=== PATIENT | female | born 1985 | race Caucasian/White ===

== ENCOUNTER 2017-08-21 06:33 | Emergency (ER) | payer BC, OTHER ==
[~2017-08-21] VITALS: Ht 177.8 cm; Wt 115.7 kg
[2017-08-21] MEDS ORDERED: IV NORMAL SALINE 1000ML BAG 1,000 ML IV SCH (06:45)
--- NOTE | 2017-08-21 06:49 | PHYS DOC ---
Past Medical History Past Medical History: Migraines Additional Past Medical Histor: Left kidney UPJ obstruction; ADHD Additional Past Surgical Histo: Cystoscopy x 3; nephrostomy tube x 2; left ureteral stent 08/20 Additional Information: Non smoker Adult General Chief Complaint Chief Complaint: FLANK PAIN HPI HPI Patient is a 31 year old female who presents with left flank pain. She recently had surgery at [facility] with the ureteral stent placed on the left last week. She is due to have surgery again on September 01 at for the left UPJ obstruction. She states she's been doing pretty well and then last night at midnight developed pain on left side. This morning at 4:00 in the morning she had markedly increased pain and vomiting. She states "I couldn't make it to so I decided to come here". She is on Bactrim presently as she has cultured Escherichia coli and MRSA. No fever she is aware of. She states that she's had 6 surgeries left kidney in the past month all done at [facility]. Review of Systems Review of Systems Constitutional: Denies fever or chills Eyes: Denies change in visual acuity, redness, or eye pain HENT: Denies nasal congestion; POS sore throat after surgery Respiratory: Denies cough or shortness of breath Cardiovascular: No chest pain GI: Denies abdominal pain, POS nausea & vomiting, DENIES bloody stools or diarrhea : Denies dysuria or hematuria; POS left flank pain Musculoskeletal: POS back pain; NO joint pain Integument: Denies rash or skin lesions Neurologic: Denies headache, focal weakness or sensory changes All other systems were reviewed and found to be within normal limits, except as documented in this note. Current Medications Current Medications Current Medications Medications (Trade) Dose Ordered Sig/Viktor Start Time Stop Time Status Last Admin Dose Admin Hydromorphone HCl (Dilaudid) 0.5 mg PRN Q15MIN PRN 08/21/17 07:00 08/22/17 06:59 08/21/17 06:53 0.5 MG Ondansetron HCl (Zofran) 4 mg 1X ONCE 08/21/17 07:00 08/21/17 07:01 08/21/17 06:52 4 MG Sodium Chloride 1,000 ml @ 1,000 mls/hr Q1H 08/21/17 06:45 08/21/17 07:44 08/21/17 06:45 1,000 MLS/HR Allergies Allergies Allergies Coded Allergies Type Severity Reaction Last Updated Verified acetaminophen Allergy Severe 08/21/17 Yes cinnamon Allergy Severe 08/21/17 Yes Physical Exam Physical Exam Constitutional: Well developed, well nourished, no acute distress, non-toxic appearance. Patient in pain and drove herself here. HENT: Normocephalic, atraumatic, bilateral external ears normal, oropharynx moist, no oral exudates, nose normal. Eyes: PERRLA, EOMI, conjunctiva normal, no discharge. Neck: Normal range of motion, no tenderness, supple, no stridor. Cardiovascular:Heart rate regular rhythm, no murmur Lungs & Thorax: Bilateral breath sounds clear to auscultation Abdomen: Bowel sounds normal, soft, no tenderness, no masses, no pulsatile masses. Skin: Warm, dry, no erythema, no rash. Multiple tattoos. Back: No tenderness, no CVA tenderness. Extremities: No tenderness, no cyanosis, no clubbing, ROM intact, no edema. Neurologic: Alert and oriented X 3, normal motor function, normal sensory function, no focal deficits noted. Psychologic: Affect normal, judgement normal, mood normal. Current Patient Data Vital Signs Vital Signs Date Time Temp Pulse Resp B/P (MAP) Pulse Ox O2 Delivery O2 Flow Rate FiO2 08/21/17 06:53 14 96 Lab Values Laboratory Tests Test 08/21/17 06:38 POC Urine HCG, Qualitative Hcg negative (Negative) Course & Med Decision Making Course & Med Decision Making Evaluated patient upon arrival. IV NS, IV Dilaudid and Zofran. KUB to check stent placement. Care of patient turned over at shift change to Dr Floyd. Emir Disclaimer Emir Disclaimer This electronic medical record was generated, in whole or in part, using a voice recognition dictation system. Departure Departure Impression: Primary Impression: Left flank pain Additional Impressions: Nausea and vomiting Pain due to ureteral stent Problem Qualifiers Additional Impressions: Nausea and vomiting Vomiting type: unspecified Vomiting Intractability: unspecified Qualified Codes: R11.2 - Nausea with vomiting, unspecified Pain due to ureteral stent Encounter type: initial encounter Qualified Codes: T83.84XA - Pain due to genitourinary prosthetic devices, implants and grafts, initial encounter STEFAN CHAVIS MD Aug 21, 2017 06:49
[2017-08-21 06:50] LABS: BASO # 0.1 x10^3/uL (0.0-0.2); BASO % 1 % (0-3); EOS % 8 % (0-3); HEMATOCRIT 42.1 % (36.0-47.0); HEMOGLOBIN 14.1 g/dL (12.0-15.5); LYMPH # 1.9 x10^3/uL (1.0-4.8); LYMPH % 26 % (24-48); MEAN CORPUSCULAR HEMOGLOBIN 32 pg (25-35); MEAN CORPUSCULAR HGB CONC 34 g/dL (31-37); MEAN CORPUSCULAR VOLUME 95 fL (79-100); MONO % 7 % (0-9); NEUT % 59 % (31-73); PLATELET COUNT 317 x10^3/uL (140-400); RED BLOOD COUNT 4.41 x10^6/uL (3.50-5.40); RED CELL DISTRIBUTION WIDTH 12.8 % (11.5-14.5); WHITE BLOOD COUNT 7.6 x10^3/uL (4.0-11.0)
[2017-08-21] MEDS: HYDROmorphone 2 MG/ML VIAL IV/SQ PRN ×4 (06:53→09:54)
[2017-08-21] MEDS ORDERED: ONDANSETRON PF 4 MG/2 ML VIAL. IV ONE ×2 (07:00→09:45)
[2017-08-21 07:01] LABS: CALCIUM 9.9 mg/dL (8.5-10.1); CREATININE 0.8 mg/dL (0.6-1.0); GFR 82.6; POTASSIUM 3.9 mmol/L (3.5-5.1)
[2017-08-21 07:07] LABS: ALBUMIN 3.3 g/dL (3.4-5.0); ALBUMIN/GLOBULIN RATIO 0.8 (1.0-1.7); TOTAL BILIRUBIN 0.2 mg/dL (0.2-1.0); TOTAL PROTEIN 7.2 g/dL (6.4-8.2)
[2017-08-21 07:09] LABS: BILIRUBIN,URINE NEGATIVE (NEG); GLUCOSE,URINE NEGATIVE (NEG); NITRITE,URINE NEGATIVE (NEG); PH,URINE 7.5; PROTEIN,URINE NEGATIVE (NEG-TRACE)
[2017-08-21 07:15] LABS: BACTERIA,URINE FEW /HPF (0-FEW); SQUAMOUS EPITHELIAL CELL,UR MANY /LPF; WBC,URINE OCC /HPF (0-4)
--- NOTE | 2017-08-21 07:28 | RAD ---
KUB Indication: Pain on the left side status post left ureteral stent placement one week ago Technique: Portable supine AP view of the lower abdomen and pelvis Comparison: None Findings: Note made of left-sided ureteral stent. 5 mm calcific density seen projecting over the lower pole of the left kidney likely renal stone. Moderate colonic stool burden. Visualized osseous structures are within normal limits. Impression: Left lower pole renal stone (5 mm). Correlate with outside imaging if available.
[2017-08-21] MEDS ORDERED: MORPHINE SULFATE 4 MG/ML DISP.SYRIN. IV/SQ PRN (08:00)
--- NOTE | 2017-08-21 08:28 | RAD ---
Ultrasound kidneys Indication: Left flank pain. Technique: Grayscale, color Doppler and spectral waveform ultrasound images of the kidneys obtained. Comparison: None Findings: Exam somewhat limited due to overlying bowel gas. The right kidney measures 12.0 x 6.0 x 5.0 cm without evidence of hydronephrosis. The left kidney measures 13.2 x 6.3 x 6.6 cm with dilated renal pelvis. The distal aspect of the left ureteral stent is seen in the bladder. Impression: Moderate left hydronephrosis.
[2017-08-21 10:50] VITALS: BP 149/87
== END 2017-08-21 10:58 | disposition home or self-care (01) ==
LOC: ER 06:33
DX: R11.2 Nausea with vomiting, unspecified (principal); T83.84XA Pain due to genitourinary prosthetic devices, implants and grafts, initial encounter; G43.909 Migraine, unspecified, not intractable, without status migrainosus; F90.9 Attention-deficit hyperactivity disorder, unspecified type; Z93.6 Other artificial openings of urinary tract status; Z96.0 Presence of urogenital implants; Z88.6 Allergy status to analgesic agent; Z91.018 Allergy to other foods; Y65.8 Other specified misadventures during surgical and medical care; Y92.89 Other specified places as the place of occurrence of the external cause
CPT/HCPCS: 36415; 74000; 76770; 80053; 81001; 81025; 85025; 87086; 96361; 96374; 96375; 96376; 99285; J1170; J2405; J7030

== ENCOUNTER 2017-08-22 23:10 | Emergency (ER) | payer BC, OTHER ==
[~2017-08-22] VITALS: Ht 177.8 cm; Wt 115.7 kg
[2017-08-22] MEDS ORDERED: IV NORMAL SALINE 1000ML BAG 1,000 ML IV SCH (23:45)
[2017-08-22] MEDS ORDERED: ONDANSETRON PF 4 MG/2 ML VIAL. IV ONE (23:45)
--- NOTE | 2017-08-22 23:47 | PHYS DOC ---
Past Medical History Past Medical History: Migraines Additional Past Medical Histor: Left kidney UPJ obstruction; ADHD Past Surgical History: Other Additional Past Surgical Histo: Cystoscopy x 3; nephrostomy tube x 2; left ureteral stent 08/20, Alcohol Use: Occasionally Drug Use: None Adult General Chief Complaint Chief Complaint: ABDOMINAL PAIN HPI HPI Patient is a 31 year old female who presents with complaint of left-sided flank pain and nausea. The patient has history of a left-sided ureteral calculus. The patient has been receiving treatment for this over the past couple months through [facility]. Patient was seen in the emergency department 2 days ago where she was treated for symptoms. At that time the patient's urologist was called and he stated that the patient did not require transfer at that time but advised that the patient follow-up at their clinic. The patient states that she came to the emergency department tonight knowing that [facility] does not have urology coverage because "my crew car driver refused to drive to [facility] and brought me here for evaluation. " The patient is on oral pain medication at home. The patient is stating that she cannot tolerate her oral medications due to nausea and vomiting and she states that she feels dehydrated. Patient's had no fevers. The patient continues to rate her pain as 10 out of 10. Review of Systems Review of Systems Constitutional: Denies fever or chills [] Eyes: Denies change in visual acuity, redness, or eye pain [] HENT: Denies nasal congestion or sore throat [] Respiratory: Denies cough or shortness of breath [] Cardiovascular: Denies chest pain or edema[] GI: Nausea, vomiting, left flank pain[] : Denies dysuria or hematuria [] Musculoskeletal: Denies back pain or joint pain [] Integument: Denies rash or skin lesions [] Neurologic: Denies headache, focal weakness or sensory changes [] All other systems were reviewed and found to be within normal limits, except as documented in this note. Current Medications Current Medications Current Medications Medications (Trade) Dose Ordered Sig/Viktor Start Time Stop Time Status Last Admin Dose Admin Ondansetron HCl (Zofran) 8 mg 1X ONCE 08/22/17 23:45 08/22/17 23:46 DC 08/22/17 23:50 8 MG Sodium Chloride 1,000 ml @ 1,000 mls/hr Q1H 08/22/17 23:45 08/23/17 00:44 08/22/17 23:51 1,000 MLS/HR Allergies Allergies Allergies Coded Allergies Type Severity Reaction Last Updated Verified acetaminophen Allergy Severe 08/21/17 Yes cinnamon Allergy Severe 08/21/17 Yes Physical Exam Physical Exam Constitutional: Alert, afebrile, appears in moderate discomfort. [] HENT: Normocephalic, atraumatic, bilateral external ears normal, oropharynx moist, no oral exudates, nose normal. [] Eyes: PERRLA, EOMI, conjunctiva normal, no discharge. [] Neck: Normal range of motion, no tenderness, supple, no stridor. [] Cardiovascular:Heart rate regular rhythm, no murmur [] Lungs & Thorax: Bilateral breath sounds clear to auscultation [] Abdomen: Bowel sounds normal, soft, no tenderness, no masses, no pulsatile masses. [] Skin: Warm, dry, no erythema, no rash. [] Back: No midline tenderness, left CVA tenderness, no flank ecchymosis.[] Extremities: No tenderness, no cyanosis, no clubbing, ROM intact, no edema. [] Neurologic: Alert and oriented X 3, normal motor function, normal sensory function, no focal deficits noted. [] Current Patient Data Vital Signs Vital Signs Date Time Temp Pulse Resp B/P (MAP) Pulse Ox O2 Delivery O2 Flow Rate FiO2 08/22/17 23:17 98.1 77 18 147/90 (109) 99 Room Air 98.1 Lab Values Laboratory Tests Test 08/22/17 23:46 08/23/17 00:13 POC Troponin I 0.00 ng/ml (<0.08) POC Hemoglobin 14.3 g/dL (12-15) POC Hematocrit 42 % (36-40) H POC Sodium 139 mmol/L (135-145) POC Potassium 4.0 mmol/L (3.5-5.0) POC Chloride 106 mmol/L (98-110) POC Total CO2 24 mmol/L (23-32) Anion Gap 13 mmol/L (6-14) POC Blood Urea Nitrogen 10 mg/dL (8-26) POC Creatinine 0.7 mg/dL (0.5-1.4) Glucose Level 101 mg/dL (70-99) H POC Ionized Calcium (Cici) 1.37 mmol/L (1.13-1.32) H Laboratory Tests 08/23/17 00:13 EKG EKG Not performed[] Radiology/Procedures Radiology/Procedures Not performed[] Course & Med Decision Making Course & Med Decision Making Pertinent Labs and Imaging studies reviewed. (See chart for details) I reviewed the patient's visit from August 21, 2017. The patient's blood work today shows no abnormalities. Kidney function is normal. I have suspicion the patient may be displaying drug seeking behavior. I explained to the patient I would not be giving the patient IV narcotics but did give the patient IV fluids and nausea medicine. I explained to the patient that we do not have a urologist on staff here at [facility] and highly advised the patient that she follow-up with her urologist. The patient does not appear to have an emergency condition at today's visit and asked does not require transfer to a facility with urology. Advised to continue on home medications as instructed by her doctors for home treatment. Advised that she follow-up in the next 1-2 days with her urologist for reevaluation. Recommended return to emergency department for any worsening symptoms. Patient voiced understanding and in agreement with treatment plan. Dragon Disclaimer Dragon Disclaimer This electronic medical record was generated, in whole or in part, using a voice recognition dictation system. Departure Departure Impression: Primary Impression: Left flank pain Disposition: 01 HOME, SELF-CARE Condition: IMPROVED Referrals: NO PCP (PCP) Patient Instructions: Flank Pain, Kidney Stones Additional Instructions: Follow-up with your urologist in the next 1-2 days for reevaluation. Continue your home medications as prescribed. Return to the emergency department for any worsening symptoms. RAI DICKEY MD Aug 22, 2017 23:47
[2017-08-23 01:17] VITALS: BP 149/42
== END 2017-08-23 01:45 | disposition home or self-care (01) ==
LOC: ER 23:10
DX: R10.9 Unspecified abdominal pain (principal); R11.2 Nausea with vomiting, unspecified; G43.909 Migraine, unspecified, not intractable, without status migrainosus; F90.9 Attention-deficit hyperactivity disorder, unspecified type; Z87.442 Personal history of urinary calculi; Z93.6 Other artificial openings of urinary tract status; Z96.0 Presence of urogenital implants; Z88.6 Allergy status to analgesic agent; Z91.018 Allergy to other foods
CPT/HCPCS: 36415; 80047; 84484; 85014; 85018; 96361; 96374; 99285; J2405; J7030

== ENCOUNTER 2017-09-20 04:12 | Emergency (ER) | payer BC, OTHER ==
[2017-09-20 04:41] LABS: URINE HCG POC HCG NEGATIVE (Negative)
[2017-09-20 04:49] LABS: BILIRUBIN,URINE SMALL (NEG); CLARITY,URINE TURBID; COLOR,URINE AMBER; GLUCOSE,URINE NEGATIVE (NEG); NITRITE,URINE NEGATIVE (NEG); PROTEIN,URINE >=300 mg/dL (NEG-TRACE); UROBILINOGEN,URINE 0.2 mg/dL (0.2 mg/dL)
[2017-09-20 04:53] LABS: ADD MAN DIFF? NO
[2017-09-20 04:57] LABS: BASO # 0.1 x10^3/uL (0.0-0.2); BASO % 1 % (0-3); EOS # 0.3 x10^3/uL (0.0-0.7); EOS % 4 % (0-3); HEMATOCRIT 37.7 % (36.0-47.0); HEMOGLOBIN 13.1 g/dL (12.0-15.5); LYMPH # 2.1 x10^3/uL (1.0-4.8); LYMPH % 26 % (24-48); MEAN CORPUSCULAR HEMOGLOBIN 33 pg (25-35); MEAN CORPUSCULAR HGB CONC 35 g/dL (31-37); MEAN CORPUSCULAR VOLUME 94 fL (79-100); MONO # 0.6 x10^3/uL (0.0-1.1); MONO % 7 % (0-9); NEUT % 62 % (31-73); PLATELET COUNT 361 x10^3/uL (140-400); RBC,URINE TNTC /HPF (0-2); RED BLOOD COUNT 4.02 x10^6/uL (3.50-5.40); RED CELL DISTRIBUTION WIDTH 12.6 % (11.5-14.5); WBC,URINE 20-40 /HPF (0-4); WHITE BLOOD COUNT 8.1 x10^3/uL (4.0-11.0)
[2017-09-20 04:58] LABS: BACTERIA,URINE MANY /HPF (0-FEW); SQUAMOUS EPITHELIAL CELL,UR FEW /LPF
[2017-09-20 05:05] LABS: ANION GAP 12 (6-14); BLOOD UREA NITROGEN 17 mg/dL (7-20); CALCIUM 10.4 mg/dL (8.5-10.1); CARBON DIOXIDE 24 mmol/L (21-32); CHLORIDE 104 mmol/L (98-107); CREATININE 0.7 mg/dL (0.6-1.0); GFR 96.4; GLUCOSE 101 mg/dL (70-99); POTASSIUM 3.6 mmol/L (3.5-5.1); SODIUM 140 mmol/L (136-145)
[2017-09-20] MEDS: IV NORMAL SALINE 1000ML BAG 1,000 ML IV (05:16)
[2017-09-20] MEDS: KETOROLAC 30 MG/ML INJ. IV (05:16)
[2017-09-20] MEDS ORDERED: oxyCODONE IR 5 MG TABLET (06:56)
[2017-09-20] MEDS: oxyCODONE IR 5 MG TABLET PO (06:58)
== END 2017-09-20 07:28 | disposition home or self-care (01) ==
LOC: ER 04:12
DX: N12 Tubulo-interstitial nephritis, not specified as acute or chronic (principal); F41.9 Anxiety disorder, unspecified; F32.9 Major depressive disorder, single episode, unspecified; F90.9 Attention-deficit hyperactivity disorder, unspecified type; Z87.442 Personal history of urinary calculi; Z96.0 Presence of urogenital implants; Z88.6 Allergy status to analgesic agent; Z88.5 Allergy status to narcotic agent; Z91.018 Allergy to other foods
CPT/HCPCS: 36415; 74176; 80048; 81001; 81025; 85025; 96361; 96365; 96374; 99285-25; J0690; J1885; J7030

== ENCOUNTER 2017-09-24 06:37 | Emergency (ER) | payer BC, OTHER ==
[2017-09-24 07:05] LABS: URINE HCG POC HCG NEGATIVE (Negative)
[2017-09-24 07:08] LABS: ADD MAN DIFF? NO
[2017-09-24] MEDS: IV NORMAL SALINE 1000ML BAG 1,000 ML IV (07:09)
[2017-09-24] MEDS: ONDANSETRON PF 4 MG/2 ML VIAL. IV (07:10)
[2017-09-24] MEDS: KETOROLAC 30 MG/ML INJ. IV (07:10)
[2017-09-24] MEDS: fentaNYL PF VIAL 100 MCG/2 ML VIAL IV ×2 (07:10→08:13)
[2017-09-24 07:11] LABS: BILIRUBIN,URINE NEGATIVE (NEG); CLARITY,URINE CLOUDY; COLOR,URINE AMBER; GLUCOSE,URINE NEGATIVE (NEG); NITRITE,URINE NEGATIVE (NEG); PROTEIN,URINE >=300 mg/dL (NEG-TRACE); UROBILINOGEN,URINE 0.2 mg/dL (0.2 mg/dL)
[2017-09-24 07:14] LABS: BASO # 0.1 x10^3/uL (0.0-0.2); BASO % 1 % (0-3); EOS # 0.1 x10^3/uL (0.0-0.7); EOS % 1 % (0-3); HEMATOCRIT 41.3 % (36.0-47.0); LYMPH % 26 % (24-48); MEAN CORPUSCULAR HEMOGLOBIN 31 pg (25-35); MEAN CORPUSCULAR HGB CONC 34 g/dL (31-37); MEAN CORPUSCULAR VOLUME 92 fL (79-100); MONO # 0.6 x10^3/uL (0.0-1.1); MONO % 8 % (0-9); NEUT # 4.9 x10^3uL (1.8-7.7); NEUT % 64 % (31-73); PLATELET COUNT 306 x10^3/uL (140-400); RED BLOOD COUNT 4.47 x10^6/uL (3.50-5.40); RED CELL DISTRIBUTION WIDTH 12.8 % (11.5-14.5); WHITE BLOOD COUNT 7.7 x10^3/uL (4.0-11.0)
[2017-09-24 07:16] LABS: ANION GAP 11 (6-14); BLOOD UREA NITROGEN 15 mg/dL (7-20); BUN/CREATININE RATIO 17 (6-20); CALCIUM 10.6 mg/dL (8.5-10.1); CARBON DIOXIDE 24 mmol/L (21-32); CHLORIDE 103 mmol/L (98-107); CREATININE 0.9 mg/dL (0.6-1.0); GFR 72.1; GLUCOSE 100 mg/dL (70-99); POTASSIUM 3.4 mmol/L (3.5-5.1); SODIUM 138 mmol/L (136-145)
[2017-09-24 07:22] LABS: ALK PHOS 103 U/L (46-116); ALT (SGPT) 22 U/L (14-59); AST (SGOT) 14 U/L (15-37); LIPASE 99 U/L (73-393); MAGNESIUM 1.9 mg/dL (1.8-2.4); TOTAL BILIRUBIN 0.6 mg/dL (0.2-1.0); TOTAL PROTEIN 7.9 g/dL (6.4-8.2)
[2017-09-24 07:26] LABS: BACTERIA,URINE 0 /HPF (0-FEW); RBC,URINE >40 /HPF (0-2); SQUAMOUS EPITHELIAL CELL,UR OCC /LPF; WBC,URINE >40 /HPF (0-4)
[2017-09-24] MEDS: POTASSIUM CHLORIDE 20 MEQ TABLET.ER. PO (08:00)
[2017-09-24] MEDS: IV RINGERS,LACTATED 1000ML 1,000 ML IV (08:00)
== END 2017-09-24 09:54 | disposition home or self-care (01) ==
LOC: ER 06:37
DX: E86.0 Dehydration (principal); R82.4 Acetonuria; E87.6 Hypokalemia; F41.9 Anxiety disorder, unspecified; F32.9 Major depressive disorder, single episode, unspecified; F90.9 Attention-deficit hyperactivity disorder, unspecified type; Z87.442 Personal history of urinary calculi; Z96.0 Presence of urogenital implants; Z88.5 Allergy status to narcotic agent; Z88.6 Allergy status to analgesic agent; Z91.018 Allergy to other foods
CPT/HCPCS: 36415; 80053; 81001; 81025; 83690; 83735; 85025; 87086; 96361; 96374; 96375; 96376; 99284-25; J1885; J2405; J3010; J7030; J7120

== ENCOUNTER 2017-10-10 06:39 | Inpatient (IN) | payer BC, OTHER ==
[2017-10-10 07:10] LABS: URINE HCG POC HCG NEGATIVE (Negative)
[2017-10-10 07:38] LABS: ADD MAN DIFF? NO
[2017-10-10 07:41] LABS: BASO % 1 % (0-3); EOS # 0.1 x10^3/uL (0.0-0.7); EOS % 2 % (0-3); HEMOGLOBIN 13.1 g/dL (12.0-15.5); LYMPH # 2.4 x10^3/uL (1.0-4.8); LYMPH % 34 % (24-48); MEAN CORPUSCULAR HEMOGLOBIN 32 pg (25-35); MEAN CORPUSCULAR HGB CONC 35 g/dL (31-37); MEAN CORPUSCULAR VOLUME 92 fL (79-100); MONO # 0.5 x10^3/uL (0.0-1.1); MONO % 7 % (0-9); NEUT # 4.1 x10^3uL (1.8-7.7); NEUT % 57 % (31-73); PLATELET COUNT 309 x10^3/uL (140-400); RED BLOOD COUNT 4.13 x10^6/uL (3.50-5.40); RED CELL DISTRIBUTION WIDTH 13.2 % (11.5-14.5); WHITE BLOOD COUNT 7.1 x10^3/uL (4.0-11.0)
[2017-10-10] MEDS: IV NORMAL SALINE 1000ML BAG 1,000 ML IV ×6 (07:41→17:47)
[2017-10-10] MEDS: KETOROLAC 30 MG/ML INJ. IV ×2 (07:41)
[2017-10-10 07:44] LABS: BILIRUBIN,URINE NEGATIVE (NEG); CLARITY,URINE CLEAR; COLOR,URINE YELLOW; GLUCOSE,URINE NEGATIVE (NEG); NITRITE,URINE NEGATIVE (NEG); PH,URINE 5.5; PROTEIN,URINE NEGATIVE (NEG-TRACE); UROBILINOGEN,URINE 0.2 mg/dL (0.2 mg/dL)
[2017-10-10 07:48] LABS: SQUAMOUS EPITHELIAL CELL,UR MANY /LPF
[2017-10-10 07:51] LABS: ANION GAP 10 (6-14); BLOOD UREA NITROGEN 15 mg/dL (7-20); BUN/CREATININE RATIO 21 (6-20); CALCIUM 10.1 mg/dL (8.5-10.1); CARBON DIOXIDE 26 mmol/L (21-32); CHLORIDE 102 mmol/L (98-107); CREATININE 0.7 mg/dL (0.6-1.0); GFR 96.4; GLUCOSE 95 mg/dL (70-99); SODIUM 138 mmol/L (136-145)
[2017-10-10 07:53] LABS: BACTERIA,URINE MOD /HPF (0-FEW)
[2017-10-10 07:57] LABS: ALBUMIN 3.7 g/dL (3.4-5.0); ALK PHOS 84 U/L (46-116); ALT (SGPT) 21 U/L (14-59); AST (SGOT) 14 U/L (15-37); LIPASE 312 U/L (73-393); TOTAL BILIRUBIN 0.5 mg/dL (0.2-1.0); TOTAL PROTEIN 7.4 g/dL (6.4-8.2)
[2017-10-10] MEDS: POTASSIUM CHLORIDE 20 MEQ TABLET.ER. PO ×2 (08:52)
[2017-10-10] MEDS: HYDROmorphone 2 MG/ML VIAL IV ×8 (08:52→20:12)
[2017-10-10 08:57] LABS: MAGNESIUM 1.9 mg/dL (1.8-2.4)
[2017-10-10] MEDS ORDERED: ACETAMINOPHEN 325 MG TABLET. PO ×2 (09:30)
[2017-10-10] MEDS: ONDANSETRON PF 4 MG/2 ML VIAL. IV ×4 (10:48→15:52)
[2017-10-10] MEDS: fentaNYL PF VIAL 100 MCG/2 ML VIAL IV ×10 (11:09→23:39)
[2017-10-10] MEDS: ENOXAPARIN 40 MG/0.4 ML SYRINGE. SQ ×2 (21:18)
[2017-10-11] MEDS: ONDANSETRON PF 4 MG/2 ML VIAL. IV ×4 (00:48→07:49)
[2017-10-11] MEDS: HYDROmorphone 2 MG/ML VIAL IV ×12 (00:48→21:31)
[2017-10-11] MEDS: fentaNYL PF VIAL 100 MCG/2 ML VIAL IV ×8 (03:01→10:04)
[2017-10-11] MEDS: IV NORMAL SALINE 1000ML BAG 1,000 ML IV ×6 (03:02→18:18)
[2017-10-11 05:00] LABS: ADD MAN DIFF? NO
[2017-10-11 05:18] LABS: BASO % 1 % (0-3); EOS # 0.2 x10^3/uL (0.0-0.7); EOS % 4 % (0-3); HEMATOCRIT 38.5 % (36.0-47.0); HEMOGLOBIN 12.9 g/dL (12.0-15.5); LYMPH # 2.4 x10^3/uL (1.0-4.8); LYMPH % 40 % (24-48); MEAN CORPUSCULAR HEMOGLOBIN 32 pg (25-35); MEAN CORPUSCULAR HGB CONC 34 g/dL (31-37); MEAN CORPUSCULAR VOLUME 94 fL (79-100); MONO # 0.5 x10^3/uL (0.0-1.1); MONO % 8 % (0-9); NEUT # 2.9 x10^3uL (1.8-7.7); NEUT % 48 % (31-73); PLATELET COUNT 304 x10^3/uL (140-400); RED BLOOD COUNT 4.08 x10^6/uL (3.50-5.40); RED CELL DISTRIBUTION WIDTH 13.2 % (11.5-14.5)
[2017-10-11 06:09] LABS: ALBUMIN 2.9 g/dL (3.4-5.0); ALBUMIN/GLOBULIN RATIO 0.9 (1.0-1.7); ALK PHOS 94 U/L (46-116); ALT (SGPT) 16 U/L (14-59); ANION GAP 8 (6-14); AST (SGOT) 11 U/L (15-37); BLOOD UREA NITROGEN 11 mg/dL (7-20); BUN/CREATININE RATIO 16 (6-20); CALCIUM 9.7 mg/dL (8.5-10.1); CARBON DIOXIDE 25 mmol/L (21-32); CHLORIDE 109 mmol/L (98-107); CREATININE 0.7 mg/dL (0.6-1.0); GFR 96.4; GLUCOSE 81 mg/dL (70-99); POTASSIUM 3.5 mmol/L (3.5-5.1); SODIUM 142 mmol/L (136-145); TOTAL BILIRUBIN 0.4 mg/dL (0.2-1.0); TOTAL PROTEIN 6.2 g/dL (6.4-8.2)
[2017-10-11] MEDS: diphenhydrAMINE 50 MG/ML VIAL IVP ×4 (10:04→21:32)
[2017-10-11] MEDS ORDERED: HYDROcodone/APAP 5/325MG 1 TAB TABLET PO ×2 (10:30)
[2017-10-11] MEDS: CITALOPRAM 20 MG TABLET. PO ×2 (10:44)
[2017-10-11] MEDS: TAMSULOSIN 0.4 MG CAP.ER.24H. PO ×2 (10:44)
[2017-10-11] MEDS: oxyCODONE IR 5 MG TABLET PO ×6 (10:44→21:30)
[2017-10-11] MEDS: ALPRAZolam 0.5 MG TABLET PO ×4 (10:44→21:30)
[2017-10-11] MEDS: MULTIVITAMIN with MINERAL TABLET. PO ×2 (10:48)
[2017-10-11] MEDS: KETOROLAC 15 MG/ML VIAL. IV ×4 (12:23→18:21)
[2017-10-11 15:02] LABS: BILIRUBIN,URINE NEGATIVE (NEG); CLARITY,URINE CLEAR; COLOR,URINE YELLOW; GLUCOSE,URINE NEGATIVE (NEG); NITRITE,URINE NEGATIVE (NEG); PH,URINE 5.5; PROTEIN,URINE NEGATIVE (NEG-TRACE); UROBILINOGEN,URINE 0.2 mg/dL (0.2 mg/dL)
[2017-10-11 15:11] LABS: BACTERIA,URINE MODERATE /HPF (0-FEW); RBC,URINE 0 /HPF (0-2); SQUAMOUS EPITHELIAL CELL,UR MOD /LPF
[2017-10-11] MEDS ORDERED: NON FORMULARY ITEM (Melatonin 10 MG) PO ×2 (21:00)
[2017-10-11] MEDS: ENOXAPARIN 40 MG/0.4 ML SYRINGE. SQ ×2 (21:29)
[2017-10-11] MEDS: ONDANSETRON ODT 4 MG TAB.RAPDIS. PO ×2 (21:30)
[2017-10-12] MEDS: KETOROLAC 15 MG/ML VIAL. IV ×8 (00:39→22:14)
[2017-10-12] MEDS: HYDROmorphone 2 MG/ML VIAL IV ×12 (01:48→20:37)
[2017-10-12] MEDS: IV NORMAL SALINE 1000ML BAG 1,000 ML IV ×6 (01:49→17:39)
[2017-10-12] MEDS: oxyCODONE IR 5 MG TABLET PO ×10 (05:49→20:36)
[2017-10-12] MEDS: CITALOPRAM 20 MG TABLET. PO ×2 (08:55)
[2017-10-12] MEDS: MULTIVITAMIN with MINERAL TABLET. PO ×2 (08:55)
[2017-10-12] MEDS: diphenhydrAMINE 50 MG/ML VIAL IVP ×6 (08:55→22:14)
[2017-10-12] MEDS: TAMSULOSIN 0.4 MG CAP.ER.24H. PO ×2 (08:55)
[2017-10-12] MEDS ORDERED: ETHIN ESTRA PO ×2 (09:00)
[2017-10-12] MEDS ORDERED: NORGEST ETH ESTR PO ×2 (09:00)
[2017-10-12] MEDS: ONDANSETRON PF 4 MG/2 ML VIAL. IV ×4 (12:57→22:23)
[2017-10-12] MEDS: ENOXAPARIN 40 MG/0.4 ML SYRINGE. SQ ×2 (20:36)
[2017-10-12] MEDS: ALPRAZolam 0.5 MG TABLET PO ×2 (22:13)
[2017-10-13] MEDS: oxyCODONE IR 5 MG TABLET PO ×8 (00:33→12:17)
[2017-10-13] MEDS: HYDROmorphone 2 MG/ML VIAL IV ×8 (00:33→12:21)
[2017-10-13] MEDS: IV NORMAL SALINE 1000ML BAG 1,000 ML IV ×4 (01:21→08:20)
[2017-10-13] MEDS: ONDANSETRON PF 4 MG/2 ML VIAL. IV ×2 (04:34)
[2017-10-13] MEDS: diphenhydrAMINE 50 MG/ML VIAL IVP ×4 (05:26→12:17)
[2017-10-13] MEDS: CITALOPRAM 20 MG TABLET. PO ×2 (08:19)
[2017-10-13] MEDS: MULTIVITAMIN with MINERAL TABLET. PO ×2 (08:19)
[2017-10-13] MEDS: TAMSULOSIN 0.4 MG CAP.ER.24H. PO ×2 (08:19)
[2017-10-13] MEDS: KETOROLAC 15 MG/ML VIAL. IV ×2 (10:48)
== END 2017-10-13 14:00 | disposition home or self-care (01) | DRG 694 ==
LOC: ER 06:39 → 4 NORTH 09:13
DX: N13.2 Hydronephrosis with renal and ureteral calculous obstruction (principal); E66.9 Obesity, unspecified; F32.9 Major depressive disorder, single episode, unspecified; F41.9 Anxiety disorder, unspecified; G43.909 Migraine, unspecified, not intractable, without status migrainosus; F90.9 Attention-deficit hyperactivity disorder, unspecified type; Z68.36 Body mass index [BMI] 36.0-36.9, adult; Z87.442 Personal history of urinary calculi; Z88.1 Allergy status to other antibiotic agents; Z88.5 Allergy status to narcotic agent
CPT/HCPCS: 36415; 74018; 76770; 80053; 81001; 81025; 83690; 83735; 85025; 87086; 96374; 96375; 99285; 99285-25; J1170; J1200; J1650; J1885; J2405; J3010; J7030; Q0162

== ENCOUNTER 2017-10-17 06:31 | Emergency (ER) | payer BC, OTHER ==
[2017-10-17] MEDS ORDERED: 0.9 % SODIUM CHLORIDE 10 ML DISP.SYRIN. IV ×2 (07:00)
[2017-10-17 07:16] LABS: URINE HCG POC HCG NEGATIVE (Negative)
[2017-10-17 07:18] LABS: BILIRUBIN,URINE NEGATIVE (NEG); CLARITY,URINE CLEAR; COLOR,URINE AMBER; GLUCOSE,URINE NEGATIVE (NEG); NITRITE,URINE NEGATIVE (NEG); PH,URINE 5.5; PROTEIN,URINE NEGATIVE (NEG-TRACE); UROBILINOGEN,URINE 0.2 mg/dL (0.2 mg/dL)
[2017-10-17 07:30] LABS: BACTERIA,URINE 0 /HPF (0-FEW); SQUAMOUS EPITHELIAL CELL,UR MANY /LPF
[2017-10-17] MEDS: ONDANSETRON PF 4 MG/2 ML VIAL. IV ×2 (07:55)
[2017-10-17] MEDS: IV NORMAL SALINE 1000ML BAG 1,000 ML IV ×2 (07:55)
[2017-10-17 07:57] LABS: ADD MAN DIFF? NO
[2017-10-17] MEDS: KETOROLAC 30 MG/ML INJ. IV ×2 (07:57)
[2017-10-17] MEDS: fentaNYL PF VIAL 100 MCG/2 ML VIAL IV ×2 (07:58)
[2017-10-17 07:59] LABS: BASO % 1 % (0-3); EOS # 0.1 x10^3/uL (0.0-0.7); EOS % 1 % (0-3); HEMATOCRIT 38.3 % (36.0-47.0); HEMOGLOBIN 13.1 g/dL (12.0-15.5); LYMPH # 1.8 x10^3/uL (1.0-4.8); LYMPH % 23 % (24-48); MEAN CORPUSCULAR HEMOGLOBIN 32 pg (25-35); MEAN CORPUSCULAR HGB CONC 34 g/dL (31-37); MEAN CORPUSCULAR VOLUME 93 fL (79-100); MONO # 0.6 x10^3/uL (0.0-1.1); MONO % 7 % (0-9); NEUT # 5.4 x10^3uL (1.8-7.7); NEUT % 69 % (31-73); PLATELET COUNT 305 x10^3/uL (140-400); RED BLOOD COUNT 4.14 x10^6/uL (3.50-5.40); RED CELL DISTRIBUTION WIDTH 13.8 % (11.5-14.5); WHITE BLOOD COUNT 7.9 x10^3/uL (4.0-11.0)
[2017-10-17 08:45] LABS: ALBUMIN 3.3 g/dL (3.4-5.0); ALK PHOS 81 U/L (46-116); ALT (SGPT) 19 U/L (14-59); ANION GAP 11 (6-14); AST (SGOT) 12 U/L (15-37); BLOOD UREA NITROGEN 14 mg/dL (7-20); CALCIUM 10.7 mg/dL (8.5-10.1); CARBON DIOXIDE 22 mmol/L (21-32); CHLORIDE 103 mmol/L (98-107); CREATININE 0.7 mg/dL (0.6-1.0); DIRECT BILIRUBIN 0.2 mg/dL (0.0-0.2); GFR 96.4; GLUCOSE 89 mg/dL (70-99); LIPASE 108 U/L (73-393); POTASSIUM 3.4 mmol/L (3.5-5.1); SODIUM 136 mmol/L (136-145); TOTAL BILIRUBIN 0.6 mg/dL (0.2-1.0); TOTAL PROTEIN 7.4 g/dL (6.4-8.2)
== END 2017-10-17 09:40 | disposition home or self-care (01) ==
LOC: ER 06:31
DX: R10.30 Lower abdominal pain, unspecified (principal); R30.0 Dysuria; E87.6 Hypokalemia; R11.0 Nausea; R50.9 Fever, unspecified; F41.9 Anxiety disorder, unspecified; F32.9 Major depressive disorder, single episode, unspecified; G43.909 Migraine, unspecified, not intractable, without status migrainosus; F90.9 Attention-deficit hyperactivity disorder, unspecified type; E66.9 Obesity, unspecified; Z87.442 Personal history of urinary calculi; Z96.0 Presence of urogenital implants; Z88.6 Allergy status to analgesic agent; Z88.5 Allergy status to narcotic agent; Z91.018 Allergy to other foods; Z68.35 Body mass index [BMI] 35.0-35.9, adult
CPT/HCPCS: 36415; 74176; 80048; 80076; 81001; 81025; 83690; 85025; 87086; 96361; 96374; 96375; 99285-25; J1885; J2405; J3010; J7030

== ENCOUNTER 2017-11-07 03:43 | Emergency (ER) | payer BC, OTHER ==
[2017-11-07 04:56] LABS: ADD MAN DIFF? NO
[2017-11-07 04:58] LABS: BASO % 0 % (0-3); EOS # 0.1 x10^3/uL (0.0-0.7); EOS % 1 % (0-3); HEMATOCRIT 39.1 % (36.0-47.0); HEMOGLOBIN 13.6 g/dL (12.0-15.5); LYMPH # 1.8 x10^3/uL (1.0-4.8); LYMPH % 28 % (24-48); MEAN CORPUSCULAR HEMOGLOBIN 32 pg (25-35); MEAN CORPUSCULAR HGB CONC 35 g/dL (31-37); MEAN CORPUSCULAR VOLUME 92 fL (79-100); MONO # 0.6 x10^3/uL (0.0-1.1); MONO % 10 % (0-9); NEUT # 3.9 x10^3uL (1.8-7.7); NEUT % 61 % (31-73); PLATELET COUNT 296 x10^3/uL (140-400); RED BLOOD COUNT 4.28 x10^6/uL (3.50-5.40); RED CELL DISTRIBUTION WIDTH 13.7 % (11.5-14.5); WHITE BLOOD COUNT 6.5 x10^3/uL (4.0-11.0)
[2017-11-07] MEDS: KETOROLAC 30 MG/ML INJ. IV (04:59)
[2017-11-07] MEDS: IV NORMAL SALINE 1000ML BAG 1,000 ML IV (04:59)
[2017-11-07 05:08] LABS: URINE HCG POC HCG NEGATIVE (Negative)
[2017-11-07 05:13] LABS: ANION GAP 8 (6-14); BLOOD UREA NITROGEN 13 mg/dL (7-20); BUN/CREATININE RATIO 16 (6-20); CALCIUM 10.9 mg/dL (8.5-10.1); CARBON DIOXIDE 23 mmol/L (21-32); CHLORIDE 106 mmol/L (98-107); CREATININE 0.8 mg/dL (0.6-1.0); GFR 82.1; GLUCOSE 102 mg/dL (70-99); POTASSIUM 3.5 mmol/L (3.5-5.1); SODIUM 137 mmol/L (136-145)
[2017-11-07 05:15] LABS: BILIRUBIN,URINE SMALL (NEG); CLARITY,URINE CLOUDY; COLOR,URINE AMBER; GLUCOSE,URINE NEGATIVE (NEG); NITRITE,URINE NEGATIVE (NEG); PH,URINE 5.5; PROTEIN,URINE 100 mg/dL (NEG-TRACE)
[2017-11-07 05:18] LABS: ALBUMIN 3.4 g/dL (3.4-5.0); ALBUMIN/GLOBULIN RATIO 0.9 (1.0-1.7); ALK PHOS 82 U/L (46-116); ALT (SGPT) 20 U/L (14-59); AST (SGOT) 11 U/L (15-37); LIPASE 153 U/L (73-393); TOTAL BILIRUBIN 0.5 mg/dL (0.2-1.0); TOTAL PROTEIN 7.4 g/dL (6.4-8.2)
[2017-11-07 05:27] LABS: BACTERIA,URINE MANY /HPF (0-FEW); RBC,URINE OCC /HPF (0-2); SQUAMOUS EPITHELIAL CELL,UR MANY /LPF
[2017-11-07 05:28] LABS: AMORPHOUS SEDIMENT,UR PRESENT /HPF
[2017-11-07] MEDS: HYDROcodone/APAP 5/325MG 1 TAB TABLET PO (06:45)
[2017-11-07] MEDS: CEPHALEXIN 250 MG CAPSULE. PO (07:00)
== END 2017-11-07 07:08 | disposition home or self-care (01) ==
LOC: ER 03:43
DX: N20.0 Calculus of kidney (principal); K57.90 Diverticulosis of intestine, part unspecified, without perforation or abscess without bleeding; F41.9 Anxiety disorder, unspecified; F32.9 Major depressive disorder, single episode, unspecified; F90.9 Attention-deficit hyperactivity disorder, unspecified type; G43.909 Migraine, unspecified, not intractable, without status migrainosus; Z87.442 Personal history of urinary calculi; Z96.0 Presence of urogenital implants; Z88.6 Allergy status to analgesic agent; Z88.5 Allergy status to narcotic agent; Z91.018 Allergy to other foods
CPT/HCPCS: 36415; 74176; 80053; 81001; 81025; 83690; 85025; 96361; 96374; 99285-25; J1885; J7030